=== PATIENT | female | born 1955 | race Caucasian/White ===

== ENCOUNTER → 2016-08-08 | Outpatient (CLI) | payer BC ==
[~2016-08-08] MED LIST: BSP10T PO; CYCL10TA9 PO; HYDR12.56 PO; LISI40TA; LISI40TA PO; MTP25TSR; OLME40TA14; SIMV40TA4; SMV10T PO; TRAM-21 PO; VENL150C53; VNL75T PO
--- NOTE | 2016-08-09 18:28 | Diagnostic Imaging Report ---
Bilateral screening mammogram. The current study was also evaluated with a Computer Aided Detection (CAD) system. INDICATION: Screening. No current complaints stated on the questionnaire. COMPARISON: 08/02/2015. FINDINGS: The breasts are composed of heterogeneously dense parenchyma which may decrease mammographic sensitivity. Benign-appearing calcifications are seen. There is a biopsy clip in the left breast. Allowing for technique and positional differences, no suspicious change is seen. IMPRESSION: No significant change. ACR BI-RADS Category 2: Benign findings. Result letter will be mailed to the patient. Note: At least 10% of breast cancer is not imaged by mammography. Dictated by: Dictated on workstation # [id number]
== END ==
LOC: RAD 15:30
PROVIDERS: ATTEND Nurse Practitioner Family
DX: Z12.31 Encounter for screening mammogram for malignant neoplasm of breast (principal)
CPT/HCPCS: 77067

== ENCOUNTER → 2017-09-03 | Outpatient (CLI) | payer BC ==
--- NOTE | 2017-09-04 19:18 | Diagnostic Imaging Report ---
INDICATION: Routine screening. The current study was also evaluated with a Computer Aided Detection (CAD) system. Comparison is made with prior studies from 08/08/2016 and 08/02/2015. FINDINGS: Both breasts remain heterogeneously dense, limiting the sensitivity of mammography. There is a circumscribed nodular density identified in the central right breast, best seen in the nipple line on the CC view. Corresponding density on the MLO view is not seen. No other mass or malignant-appearing microcalcifications are seen. Biopsy clip in the left breast is again noted. The axillae are unremarkable. IMPRESSION: Right breast density. Additional views recommended for further evaluation. Ultrasound will be necessary as well if the density persists. ACR BI-RADS Category 0: Incomplete. (Needs additional imaging evaluation). Result letter will be mailed to the patient. Note: At least 10% of breast cancer is not imaged by mammography. Dictated by: Dictated on workstation # [id number]
== END ==
LOC: RAD 15:29
PROVIDERS: ATTEND Nurse Practitioner Family
DX: Z12.31 Encounter for screening mammogram for malignant neoplasm of breast (principal)
CPT/HCPCS: 77067

== ENCOUNTER → 2017-09-22 | Outpatient (CLI) | payer BC ==
--- NOTE | 2017-09-22 13:12 | Diagnostic Imaging Report ---
INDICATION: Right breast density. The patient presents for additional views. COMPARISON: Correlation is made with the recent screening mammogram from 09/03/2017. TECHNIQUE: The patient returned and a spot compression CC 3-D view was performed. In addition, 2-D rolled CC and 3-D mediolateral views were performed of the right breast. The current study was also evaluated with a Computer Aided Detection (CAD) system. FINDINGS: The circumscribed density in the retroareolar right breast is no longer visualized. No mass is detected. No suspicious calcifications are seen. There are benign calcifications present. IMPRESSION: Additional views fail to demonstrate a discrete mass. The patient may return to routine annual screening mammography. ACR BI-RADS Category 1: Negative. Result letter will be mailed to the patient. Note: At least 10% of breast cancer is not imaged by mammography. Dictated by: Dictated on workstation # [id number]
== END ==
LOC: RAD 12:08
PROVIDERS: ATTEND Nurse Practitioner Family
DX: R92.8 Other abnormal and inconclusive findings on diagnostic imaging of breast (principal)

== ENCOUNTER → 2018-09-18 | Outpatient (CLI) | payer BC ==
--- NOTE | 2018-09-21 08:07 | Diagnostic Imaging Report ---
INDICATION: Routine screening. COMPARISON: Prior mammogram from 09/03/2017 and 08/08/2016. EXAMINATION: 2D and 3D bilateral diagnostic mammography was performed CAD. The current study was also evaluated with a Computer Aided Detection (CAD) system. FINDINGS: Both breasts are heterogeneously dense, limiting the sensitivity of mammography. A stereotactic clip in the central left breast is noted. No mass or malignant appearing microcalcifications are seen. The axillae are unremarkable. IMPRESSION: No mammographic features suspicious for malignancy are identified. ACR BI-RADS Category 2: Benign findings. Result letter will be mailed to the patient. Note: At least 10% of breast cancer is not imaged by mammography. Dictated by: Dictated on workstation # [id number]
== END ==
LOC: RAD 09:58
PROVIDERS: ATTEND Nurse Practitioner Family
DX: Z12.31 Encounter for screening mammogram for malignant neoplasm of breast (principal)
CPT/HCPCS: 77067

== ENCOUNTER → 2019-11-08 | Outpatient (CLI) | payer BC, MEDICARE ==
--- NOTE | 2019-11-08 12:42 | Diagnostic Imaging Report ---
INDICATION: Screening. EXAMINATION: Digital screening with CAD. COMPARISON: 09/21/2018, 09/05/2017, and 08/12/2016. FINDINGS: The parenchymal pattern remains heterogeneously dense, unchanged. A biopsy clip in the left breast is stable. No mass, architectural distortion, suspicious calcifications, or evidence for neoplasm. IMPRESSION: Stable benign findings. ACR BI-RADS Category 2: Benign findings. Result letter will be mailed to the patient. Note: At least 10% of breast cancer is not imaged by mammography. Dictated by: Dictated on workstation # [id number]
== END ==
LOC: RAD 08:39
PROVIDERS: ATTEND Family Medicine
DX: Z12.31 Encounter for screening mammogram for malignant neoplasm of breast (principal)
CPT/HCPCS: 77063; 77067

== ENCOUNTER → 2021-12-12 | Outpatient (CLI) | payer MEDICARE ==
--- NOTE | 2021-12-12 11:38 | Diagnostic Imaging Report ---
INDICATION: Routine screening Comparison is made with prior mammogram from 12/11/2020 and 11/08/2019. 2-D and 3-D bilateral screening mammography was performed with CAD. CAD is utilized. The current study was also evaluated with a Computer Aided Detection (CAD) system. Both breasts are heterogeneously dense, limiting the sensitivity of mammography. A biopsy marker clip in the left breast is again noted. There are occasional benign calcifications in both breasts. No spiculated mass or malignant-appearing microcalcifications are seen. Axillae are unremarkable. IMPRESSION: BI-RADS Category 2 No mammographic features suspicious for malignancy are identified. ACR BI-RADS Category 2: Benign findings. Result letter will be mailed to the patient. Note: At least 10% of breast cancer is not imaged by mammography. Dictated by: Dictated on workstation # [id number]
== END ==
LOC: RAD 09:45
PROVIDERS: ATTEND Family Medicine
DX: Z12.31 Encounter for screening mammogram for malignant neoplasm of breast (principal)
CPT/HCPCS: 77063; 77067

== ENCOUNTER → 2023-01-13 | Outpatient (CLI) | payer MEDICARE ==
--- NOTE | 2023-01-13 12:59 | Diagnostic Imaging Report ---
INDICATION: FAMILY HX OF AORTIC ANEURYSM. COMPARISON: None. TECHNIQUE: Routine grayscale, color-flow, and duplex evaluation of the abdominal aorta was performed. FINDINGS: The abdominal aorta is normal in course and caliber. There is no evidence of aneurysm. The axial dimensions of the abdominal aorta, at the level of the renal arteries is approximately 1.6 x 1.6 cm. In the mid segment these are 1.1 x 1.2 cm and distally these are 1.4 x 1.2 cm. The aortic bifurcation is unremarkable. The proximal portions of the right and left common iliac arteries are unremarkable. There is no ascites. IMPRESSION: 1. Unremarkable abdominal aorta. No evidence of stenosis or aneurysm. Dictated by: Dictated on workstation # [id number]
--- NOTE | 2023-01-13 13:13 | Diagnostic Imaging Report ---
Indication: Routine screening. Comparison is made with prior mammogram from 12/12/2021 and 12/11/2020. 2-D and 3-D bilateral screening mammography was performed with CAD. The current study was also evaluated with a Computer Aided Detection (CAD) system. Both breasts are heterogeneously dense, limiting the sensitivity of mammography. A biopsy marker clip left breast is again noted. The parenchymal pattern appears stable. There is a occasional benign calcifications. Circumscribed nodule in the central right breast is stable appears benign. No spiculated mass or malignant-appearing microcalcifications are seen. Axillae are unremarkable. IMPRESSION: BI-RADS Category 2 No mammographic features suspicious for malignancy are identified. ACR BI-RADS Category 2: Benign findings. Result letter will be mailed to the patient. Note: At least 10% of breast cancer is not imaged by mammography. Dictated by: Dictated on workstation # [id number]
== END ==
LOC: RAD 09:44
PROVIDERS: ATTEND Physician Assistant
DX: Z12.31 Encounter for screening mammogram for malignant neoplasm of breast (principal); Z82.49 Family history of ischemic heart disease and other diseases of the circulatory system
CPT/HCPCS: 76775; 77063; 77067

== ENCOUNTER → 2023-02-19 | Outpatient (CLI) | payer MEDICARE ==
[~2023-02-19] MED LIST changes: +REGADENOSON 0.4 MG/5 ML SYR (LEXISCAN) IV ONE
[2023-02-19] MEDS: CATHETER FLUSH 10 ML SYR IVP PRN ×2 (07:51→09:12)
[2023-02-19 09:11] VITALS: BP 142/46
--- NOTE | 2023-02-19 15:33 | Cardiology Stress Test Report ---
Stress Test Report Date of Procedure/Referring: Date of Procedure: Feb 19, 2023 PCP Kylah Skinner MD Admitting Physician Admitting Physician: Attending Physician: Dorian Lopez MD Baseline Heart Rate: 65 Baseline Blood Pressure: Blood Pressure Systolic: 142 Blood Pressure Diastolic: 46 Baseline Vitals Vital Signs Date Time Temp Pulse Resp B/P (MAP) Pulse Ox O2 Delivery O2 Flow Rate FiO2 02/19/23 09:11 86 16 142/46 (78) 98 Room Air Baseline EKG: Baseline EKG: NSR Summary After explaining the procedure to the patient, she signed a consent and then brought to the stress nuclear laboratory. Patient received 0.4 mg Lexiscan for stress test, ECG, heart rate and blood pressure were monitored continuously. Resting and stress dose of radio tracer were injected, imaging was acquired and reviewed in short axis, horizontal long axis and vertical long axis views. TID: 1.16 SSS: 3 SDS: 3 EF: 71 Patient tolerated Lexiscan well Breast attenuation with typical female pattern, no significant ischemia or infarction noted on SPECT images Normal left ventricular size, ejection fraction 71% Copy Copies To 1: KYLAH SKINNER MD, BASHAR J MD Feb 19, 2023 15:33
== END ==
LOC: CARD 07:36
PROVIDERS: ATTEND Internal Medicine Cardiovascular Disease
DX: I10 Essential (primary) hypertension (principal); I25.10 Atherosclerotic heart disease of native coronary artery without angina pectoris
CPT/HCPCS: 78452; 93017; A9502